=== PATIENT | female | born 1950 | race African-American/Black ===

== ENCOUNTER 2019-12-01 03:50 | Day surgery (SDC) | payer MEDICARE, MEDICAID ==
[~2019-12-01] VITALS: Ht 167.6 cm; Wt 65.9 kg
[~2019-12-01 03:50] MED LIST: ALBU0.212 IH; ASPI-556 PO; BENA10TA PO; CITA40TA6 PO; DOCU-119 PO; FLUT110HFA IH; HYDR12.530 PO; NAPR-1193 PO; NIFE60TA12 PO
[2019-12-01] MEDS ORDERED: HYALURONATE SODIUM 12 MG/ML 0.8 ML SYRINGE IO ONE (03:51)
[2019-12-01] MEDS ORDERED: LIDOCAINE/PF 1% 2 ML VIAL IM ONE (03:51)
[2019-12-01] MEDS ORDERED: NEOMYCIN/POLYMYXIN B/DEXAMETH 3.5 GM OPHTHALMIC OINTMENT OS ONE (03:51)
[2019-12-01] MEDS ORDERED: PrednisoLONE ACETATE 1% 5 ML OPHTHALMIC SUSPENSION OS ONE (03:51)
[2019-12-01] MEDS ORDERED: EPINEPHrine 1:1,000 [1 MG/ML] AMP IM ONE (03:51)
[2019-12-01] MEDS ORDERED: POVIDONE-IODINE 10% 15 ML SOLUTION UD TP ONE (03:51)
[2019-12-01] MEDS ORDERED: TETRACAINE HCL/PF 0.5% 4 ML OPHTHALMIC SOLUTION ONE (04:02)
[2019-12-01] MEDS ORDERED: RINGERS SOLUTION,LACTATED 500 ML IV ONE ×2 (04:02→04:30)
[2019-12-01] MEDS ORDERED: MOXIFLOXACIN HCL 0.5% 3 ML OPHTHALMIC SOLUTION ONE (04:03)
[2019-12-01] MEDS ORDERED: PHENYLEPHRINE HCL 2.5% 2 ML OPHTHALMIC SOLUTION ONE (04:03)
[2019-12-01] MEDS ORDERED: KETOROLAC TROMETHAMINE 0.5% 5 ML OPHTHALMIC SOLUTION ONE (04:03)
[2019-12-01] MEDS ORDERED: TROPICAMIDE 1% 2 ML OPHTHALMIC SOLUTION ONE (04:03)
[2019-12-01] MEDS ORDERED: CYCLOPENTOLATE HCL 1% 2 ML OPHTHALMIC SOLUTION ONE (04:03)
[2019-12-01] MEDS: CYCLOPENTOLATE HCL 1% 2 ML OPHTHALMIC SOLUTION OD SCH ×3 (04:48→05:04)
[2019-12-01] MEDS: MOXIFLOXACIN HCL 0.5% 3 ML OPHTHALMIC SOLUTION OD SCH ×3 (04:48→05:04)
[2019-12-01] MEDS: TROPICAMIDE 1% 2 ML OPHTHALMIC SOLUTION OD SCH ×3 (04:48→05:04)
[2019-12-01] MEDS: PHENYLEPHRINE HCL 2.5% 2 ML OPHTHALMIC SOLUTION OD SCH ×3 (04:48→05:04)
[2019-12-01] MEDS: KETOROLAC TROMETHAMINE 0.5% 5 ML OPHTHALMIC SOLUTION OD SCH ×3 (04:48→05:04)
[2019-12-01] MEDS ORDERED: FERR325T22 PO (05:19)
[2019-12-01] MEDS ORDERED: FURO80TA3 PO (05:19)
[2019-12-01] MEDS ORDERED: VALS80TA32 PO (05:19)
[2019-12-01] MEDS ORDERED: POTA-92 PO (05:19)
[2019-12-01] MEDS ORDERED: ATOR40TA71 PO (05:19)
[2019-12-01] MEDS ORDERED: CARV25TA32 PO (05:19)
[2019-12-01] MEDS ORDERED: CLOP75TA32 PO (05:19)
[2019-12-01] MEDS ORDERED: CHOL100018 PO (05:19)
[2019-12-01] MEDS ORDERED: TETRACAINE HCL/PF 0.5% 4 ML OPHTHALMIC SOLUTION OD ONE (06:00)
[2019-12-01] MEDS ORDERED: MIDAZOLAM HCL 2 MG/2 ML VIAL IVP ONE (12:00)
[2019-12-01] MEDS ORDERED: FentaNYL CITRATE-PF 100 MCG/2 ML VIAL IVP ONE (12:00)
== END 2019-12-01 08:30 | disposition home or self-care (01) ==
LOC: SURGERY 03:50
PROVIDERS: ATTEND Ophthalmology
DX: H25.11 Age-related nuclear cataract, right eye (principal); I10 Essential (primary) hypertension; J44.9 Chronic obstructive pulmonary disease, unspecified; I25.10 Atherosclerotic heart disease of native coronary artery without angina pectoris; F17.200 Nicotine dependence, unspecified, uncomplicated
CPT/HCPCS: 66984; 93005; J0171; J2250; J3010; J3490 ×2; J7120; V2632

== ENCOUNTER 2019-12-24 04:15 | Day surgery (SDC) | payer MEDICARE, MEDICAID ==
[~2019-12-24] VITALS: Ht 167.6 cm; Wt 66.4 kg
[~2019-12-24 04:15] MED LIST changes: -ALBU0.212 IH; +ATOR40TA71 PO; -BENA10TA PO; +CARV25TA32 PO; +CHOL100018 PO; -CITA40TA6 PO; +CLOP75TA32 PO; -DOCU-119 PO; +FERR325T22 PO; -FLUT110HFA IH; +FURO80TA3 PO; -HYDR12.530 PO; -NAPR-1193 PO; -NIFE60TA12 PO; +POTA-92 PO; +VALS80TA32 PO
[2019-12-24] MEDS ORDERED: METOPROLOL TARTRATE 5 MG/5 ML VIAL IVP ONE (04:16)
[2019-12-24] MEDS ORDERED: KETOROLAC TROMETHAMINE 0.5% 5 ML OPHTHALMIC SOLUTION ONE (04:28)
[2019-12-24] MEDS ORDERED: RINGERS SOLUTION,LACTATED 500 ML IV ONE ×2 (04:28→04:30)
[2019-12-24] MEDS ORDERED: TETRACAINE HCL/PF 0.5% 4 ML OPHTHALMIC SOLUTION ONE (04:28)
[2019-12-24] MEDS ORDERED: MOXIFLOXACIN HCL 0.5% 3 ML OPHTHALMIC SOLUTION ONE (04:28)
[2019-12-24] MEDS ORDERED: CYCLOPENTOLATE HCL 1% 2 ML OPHTHALMIC SOLUTION ONE (04:29)
[2019-12-24] MEDS ORDERED: TROPICAMIDE 1% 2 ML OPHTHALMIC SOLUTION ONE (04:29)
[2019-12-24] MEDS ORDERED: PHENYLEPHRINE HCL 2.5% 2 ML OPHTHALMIC SOLUTION ONE (04:29)
[2019-12-24] MEDS ORDERED: TETRACAINE HCL/PF 0.5% 4 ML OPHTHALMIC SOLUTION OS ONE (05:00)
[2019-12-24] MEDS ORDERED: ALPRAZolam 0.5 MG TABLET PO ONE (05:00)
[2019-12-24] MEDS: PHENYLEPHRINE HCL 2.5% 2 ML OPHTHALMIC SOLUTION OS SCH ×3 (05:02→05:12)
[2019-12-24] MEDS: TROPICAMIDE 1% 2 ML OPHTHALMIC SOLUTION OS SCH ×3 (05:02→05:12)
[2019-12-24] MEDS: CYCLOPENTOLATE HCL 1% 2 ML OPHTHALMIC SOLUTION OS SCH ×3 (05:02→05:12)
[2019-12-24] MEDS: KETOROLAC TROMETHAMINE 0.5% 5 ML OPHTHALMIC SOLUTION OS SCH ×3 (05:02→05:12)
[2019-12-24] MEDS: MOXIFLOXACIN HCL 0.5% 3 ML OPHTHALMIC SOLUTION OS SCH ×3 (05:02→05:12)
[2019-12-24] MEDS ORDERED: EPINEPHrine 1:1,000 [1 MG/ML] AMP ONE (05:40)
[2019-12-24] MEDS ORDERED: POVIDONE-IODINE 10% 15 ML SOLUTION UD ONE (05:40)
[2019-12-24] MEDS ORDERED: NEOMYCIN/POLYMYXIN B/DEXAMETH 3.5 GM OPHTHALMIC OINTMENT ONE (05:40)
[2019-12-24] MEDS ORDERED: BALANCED SALT 15 ML OPHTHALMIC IRRIG.SOLN ONE (05:40)
[2019-12-24] MEDS ORDERED: LIDOCAINE/PF 1% 2 ML VIAL ONE (05:40)
[2019-12-24] MEDS ORDERED: PrednisoLONE ACETATE 1% 5 ML OPHTHALMIC SUSPENSION ONE (06:21)
[2019-12-24] MEDS ORDERED: FentaNYL CITRATE-PF 100 MCG/2 ML VIAL IVP ONE (12:00)
[2019-12-24] MEDS ORDERED: MIDAZOLAM HCL 2 MG/2 ML VIAL IVP ONE (12:00)
[2019-12-24] MEDS ORDERED: HYALURONATE SODIUM 12 MG/ML 0.8 ML SYRINGE IO ONE (17:14)
== END 2019-12-24 08:00 | disposition home or self-care (01) ==
LOC: SURGERY 04:15
PROVIDERS: ATTEND Ophthalmology
DX: H25.12 Age-related nuclear cataract, left eye (principal); F17.210 Nicotine dependence, cigarettes, uncomplicated; I25.10 Atherosclerotic heart disease of native coronary artery without angina pectoris; E78.00 Pure hypercholesterolemia, unspecified; I10 Essential (primary) hypertension; J44.9 Chronic obstructive pulmonary disease, unspecified; D64.9 Anemia, unspecified; Z95.5 Presence of coronary angioplasty implant and graft; Z79.899 Other long term (current) drug therapy; Z11.59 Encounter for screening for other viral diseases
CPT/HCPCS: 66984; 87635; J0171; J2250; J3010; J3490 ×3; J7120; V2632